=== PATIENT | female | born 2000 | race Two or more races ===

== ENCOUNTER 2020-12-16 09:53 | Emergency (ER) | payer OTHER ==
[~2020-12-16] VITALS: Ht 152.4 cm; Wt 62.6 kg
== END 2020-12-16 15:56 | disposition home or self-care (01) ==
LOC: ER 09:53
DX: R10.2 Pelvic and perineal pain (principal); Z33.1 Pregnant state, incidental

== ENCOUNTER → 2021-04-11 | Outpatient (CLI) | payer OTHER | END | disposition home or self-care (01) | LOC: PRENATAL 13:30 | PROVIDERS: ATTEND Obstetrics & Gynecology Maternal & Fetal Medicine | DX: O35.0XX1 Maternal care for (suspected) central nervous system malformation in fetus, fetus 1 (principal); O35.3XX1 Maternal care for (suspected) damage to fetus from viral disease in mother, fetus 1; O98.512 Other viral diseases complicating pregnancy, second trimester; Z36.89 Encounter for other specified antenatal screening; Z3A.22 22 weeks gestation of pregnancy ==

== ENCOUNTER 2021-08-11 02:34 | Inpatient (IN) | payer OTHER ==
[~2021-08-11] VITALS: Ht 152.4 cm; Wt 68.9 kg
[2021-08-11] MEDS ORDERED: PRENATAL TABLE1 EAC1 PO (02:58)
== END 2021-08-13 13:02 | disposition home or self-care (01) | DRG 807 ==
LOC: OB/GYN 02:34 → LDR 02:34 → OB/GYN 15:06
PROVIDERS: ADMIT Obstetrics & Gynecology; ATTEND Obstetrics & Gynecology
PROC: 10E0XZZ Delivery of Products of Conception, External Approach (ICD-10-PCS; principal; 2021-08-11)
PROC: 0W8NXZZ Division of Female Perineum, External Approach (ICD-10-PCS; 2021-08-11)
PROC: 4A1HXFZ Monitoring of Products of Conception, Cardiac Rhythm, External Approach (ICD-10-PCS; 2021-08-11)
DX: O99.824 Streptococcus B carrier state complicating childbirth (principal); Z37.0 Single live birth; Z3A.40 40 weeks gestation of pregnancy

== ENCOUNTER 2022-01-16 12:49 | Emergency (ER) | payer OTHER ==
[~2022-01-16] VITALS: Ht 152.4 cm; Wt 60.8 kg
[~2022-01-16 12:49] MED LIST: PRENATAL TABLE1 EAC1 PO
== END 2022-01-16 16:02 | disposition home or self-care (01) ==
LOC: ER 12:49
DX: B34.9 Viral infection, unspecified (principal); Z20.822 Contact with and (suspected) exposure to COVID-19

== ENCOUNTER 2022-05-25 15:33 | Emergency (ER) | payer OTHER ==
[~2022-05-25] VITALS: Ht 152.4 cm; Wt 58.1 kg
[2022-05-25] MEDS ORDERED: MACRODANTIN100 M1 PO (20:41)
== END 2022-05-25 20:57 | disposition home or self-care (01) ==
LOC: ER 15:33
DX: N30.90 Cystitis, unspecified without hematuria (principal)